=== PATIENT | female | born 1945 | race Caucasian/White ===

== ENCOUNTER 2016-11-02 17:10 | Emergency (ER) | payer MEDICARE, MEDICAID ==
[~2016-11-02 17:10] MED LIST: ADULT LOW DOSE81 M1 PO; ALLOPURINOL100 MG PO; AMBIEN10 M1 PO; AMITIZA8 MCG PO; ASPIR 8181 MG PO; ATIVAN1 M2 PO; ATIVAN1 MG PO; AUGMENTIN; CIPRO250 M2 PO; CLIMARA1 EAC1 TD; COREG12.5 M1 PO; COREG12.5 MG PO; CRESTOR20 MG PO; CYTOMEL5 MC1 PO; CYTOMEL5 MCG PO; DAYPRO600 MG PO; DIOVAN80 M PO; FLONASE ALLERG9.9 ML; FOCALIN XR20 MG PO; GLUCOPHAGE1000 MG PO; GLUCOPHAGE500 M3 PO; K-TAB ER20 ME1 PO; KEFLEX500 M4 PO; LAMICTAL100 M2 PO; LAMICTAL25 MG PO; LEVAQUIN500 MG PO; LEVOTHROID75 MCG PO; LEVOTHYROXINE50 MC3 PO; LINZESS290 MC1 PO; MELOXICAM7.5 M1 PO; MOBIC7.5 M2 PO; NORCO 5-325 TA1 EACH PO; OXYCODONE; PERCOCET 10-321 EACH PO; PERCOCET 5/3251 TAB PO; PROVENTIL17 GM IH; REXULTI2 MG PO; RITALIN10 M1 PO; SEROQUEL50 M1 PO; SEROQUEL50 MG PO; ULTRAM50 M1 PO; VENTOLIN HFA18 G2 INH; VYVANSE30 M1 PO; WILL BRING LIST; XARELTO10 M1 PO; ZOLOFT100 M1 PO; ZOLOFT50 MG PO; ZYLOPRIM100 M1 PO
[2016-11-02] MEDS ORDERED: LEVAQUIN750 M1 PO (20:02)
[2016-11-02] MEDS ORDERED: PROAIR HFA8.5 GM INH (20:02)
[2017-02-14] MEDS ORDERED: CYMBALTA60 M1 PO (14:14)
[2017-02-14] MEDS ORDERED: QUETIAPINE FUM100 M1 PO (14:14)
[2017-02-14] MEDS ORDERED: NYSTATIN15 G1 TP (14:15)
[2017-02-14] MEDS ORDERED: KETOCONAZOLE15 GM TP (14:37)
[2017-02-14] MEDS ORDERED: MUPIROCIN22 G2 TP (14:38)
[2017-02-14] MEDS ORDERED: KEFLEX500 M4 PO (15:59)
[2017-03-18] MEDS ORDERED: KEFLEX500 M4 PO (15:08)
== END 2016-11-02 20:15 ==
LOC: EDMED 17:10
DX: J40 Bronchitis, not specified as acute or chronic (principal); I25.10 Atherosclerotic heart disease of native coronary artery without angina pectoris; I25.2 Old myocardial infarction; I10 Essential (primary) hypertension; E11.9 Type 2 diabetes mellitus without complications; E03.9 Hypothyroidism, unspecified; E66.9 Obesity, unspecified; Z90.710 Acquired absence of both cervix and uterus; Z90.49 Acquired absence of other specified parts of digestive tract; Z79.890 Hormone replacement therapy; Z79.899 Other long term (current) drug therapy

== ENCOUNTER 2016-11-13 01:45 | Emergency (ER) | payer MEDICARE, MEDICAID ==
[~2016-11-13 01:45] MED LIST changes: +LEVAQUIN750 M1 PO; +PROAIR HFA8.5 GM INH
[2016-11-13 02:31] LABS: BASO % 0.5 % (0-2); EOS % 7.3 % (0-7); EOSINOPHIL ABSOLUTE COUNT 0.3 tho/cmm (0.0-0.7); HGB-HEMOGLOBIN 13.8 gm/dl (12.0-15.5); IMMATURE GRANULOCYTES ABSOLUTE 0.01 tho/cmm (0-0.03); IMMATURE GRANULOCYTES PERCENT 0.2 % (0-0.3); LYMPH % 20.8 % (20-45); LYMPH ABSOLUTE COUNT 0.9 tho/cmm (0.8-4.5); MCH (MEAN CORPUSCULAR HGB) 32.2 pg (28.0-32.0); MCHC MEAN CORPUSCULAR HGB CONC 34.5 % (32.0-36.0); MCV (MEAN CELL VOLUME) 93.5 fl (82.0-96.0); MEAN PLATELET VOLUME 9.2 cmc (9.4-12.4); MONO % 7.3 % (0-12); MONOCYTE ABSOLUTE COUNT 0.3 tho/cmm (0.0-1.2); NEUTROPHIL ABSOLUTE COUNT 2.8 tho/cmm (1.6-8.0); NEUTROPHIL-AUTOMATED 2.8 tho/cmm (1.6-8.0); NEUTROPHILS % 63.9 % (40-80); PLATELET COUNT 81 tho/cmm (150-450); RED BLOOD COUNT 4.28 mil/cmm (4.00-5.20); RED CELL DISTRIBUTION WIDTH 14.5 % (12.4-16.4); WHITE BLOOD COUNT 4.4 tho/cmm (4.0-10.0)
[2016-11-13 02:48] LABS: ALB/GLOB RATIO 0.6 (0.8-2.0); ALKALINE PHOSPHATASE 108 U/L (33-138); ALT/SGPT 37 U/L (12-78); ANION GAP 12 mmol/L (0-20); AST/SGOT 70 U/L (10-40); BILIRUBIN,TOTAL 1.4 mg/dl (0-1.5); BLOOD UREA NITROGEN 10 mg/dl (6-24); CARBON DIOXIDE-VENOUS 25 mmol/L (22-32); CHLORIDE 109 mmol/l (96-110); CREATININE 1.05 mg/dl (0.50-1.10); GLUCOSE 132 mg/dL (70-110); POTASSIUM 3.9 mmol/L (3.7-5.1); SODIUM 142 mmol/L (135-145); eGFR VALUE FOR BLACK 61 mL/Min
[2017-02-14] MEDS ORDERED: QUETIAPINE FUM100 M1 PO (14:14)
[2017-02-14] MEDS ORDERED: CYMBALTA60 M1 PO (14:14)
[2017-02-14] MEDS ORDERED: NYSTATIN15 G1 TP (14:15)
[2017-02-14] MEDS ORDERED: KETOCONAZOLE15 GM TP (14:37)
[2017-02-14] MEDS ORDERED: MUPIROCIN22 G2 TP (14:38)
[2017-02-14] MEDS ORDERED: KEFLEX500 M4 PO (15:59)
[2017-03-18] MEDS ORDERED: KEFLEX500 M4 PO (15:08)
== END 2016-11-13 03:16 ==
LOC: EDMED 01:45
PROVIDERS: Emergency Medicine
DX: G47.00 Insomnia, unspecified (principal); E11.9 Type 2 diabetes mellitus without complications; I10 Essential (primary) hypertension; J44.9 Chronic obstructive pulmonary disease, unspecified; Z90.710 Acquired absence of both cervix and uterus; Z90.49 Acquired absence of other specified parts of digestive tract

== ENCOUNTER 2016-11-15 00:42 | Emergency (ER) | payer MEDICARE, MEDICAID ==
[2017-02-14] MEDS ORDERED: QUETIAPINE FUM100 M1 PO (14:14)
[2017-02-14] MEDS ORDERED: CYMBALTA60 M1 PO (14:14)
[2017-02-14] MEDS ORDERED: NYSTATIN15 G1 TP (14:15)
[2017-02-14] MEDS ORDERED: KETOCONAZOLE15 GM TP (14:37)
[2017-02-14] MEDS ORDERED: MUPIROCIN22 G2 TP (14:38)
[2017-02-14] MEDS ORDERED: KEFLEX500 M4 PO (15:59)
[2017-03-18] MEDS ORDERED: KEFLEX500 M4 PO (15:08)
== END 2016-11-15 01:00 | disposition left against medical advice (07) ==
LOC: EDMED 00:42
DX: I10 Essential (primary) hypertension (principal); Z53.21 Procedure and treatment not carried out due to patient leaving prior to being seen by health care provider